=== PATIENT | female | born 1945 | race Caucasian/White ===

== ENCOUNTER 2017-11-12 09:04 | Outpatient (CLI) | payer MEDICARE, BC ==
[2017-11-12 08:56] VITALS: BP 140/81
== END 2017-11-12 09:50 | disposition home or self-care (01) ==
LOC: ORTHO 09:04
PROVIDERS: ATTEND Nurse Practitioner Family
DX: S52.502G Unspecified fracture of the lower end of left radius, subsequent encounter for closed fracture with delayed healing (principal); S52.615D Nondisplaced fracture of left ulna styloid process, subsequent encounter for closed fracture with routine healing; E78.00 Pure hypercholesterolemia, unspecified; F17.210 Nicotine dependence, cigarettes, uncomplicated; F32.9 Major depressive disorder, single episode, unspecified; F41.9 Anxiety disorder, unspecified; G89.29 Other chronic pain; J44.9 Chronic obstructive pulmonary disease, unspecified; Z85.41 Personal history of malignant neoplasm of cervix uteri; Z88.0 Allergy status to penicillin; Z88.2 Allergy status to sulfonamides; X58.XXXD Exposure to other specified factors, subsequent encounter
CPT/HCPCS: 73110

== ENCOUNTER 2017-12-12 08:50 | Outpatient (CLI) | payer MEDICARE, BC ==
[2017-12-12 08:49] VITALS: BP 141/75
== END 2017-12-12 09:30 | disposition home or self-care (01) ==
LOC: ORTHO 08:50
PROVIDERS: ATTEND Nurse Practitioner Family
DX: S52.502D Unspecified fracture of the lower end of left radius, subsequent encounter for closed fracture with routine healing (principal); S52.615G Nondisplaced fracture of left ulna styloid process, subsequent encounter for closed fracture with delayed healing; M85.88 Other specified disorders of bone density and structure, other site; E78.00 Pure hypercholesterolemia, unspecified; J44.9 Chronic obstructive pulmonary disease, unspecified; G89.29 Other chronic pain; F41.9 Anxiety disorder, unspecified; F32.9 Major depressive disorder, single episode, unspecified; F17.210 Nicotine dependence, cigarettes, uncomplicated; Z85.41 Personal history of malignant neoplasm of cervix uteri; Z88.0 Allergy status to penicillin; Z88.2 Allergy status to sulfonamides; X58.XXXD Exposure to other specified factors, subsequent encounter
CPT/HCPCS: 73110

== ENCOUNTER 2018-04-27 07:20 | Emergency (ER) | payer MEDICARE, BC ==
[~2018-04-27] VITALS: Ht 591.1 cm; Wt 81.8 kg
[~2018-04-27 07:20] MED LIST: CLON-529 PO; DIPH50CA3 PO; IBUP-1984 PO
[2018-04-27] MEDS ORDERED: diphenhydrAMINE 50 mg/ml inj IV ONE (07:30)
[2018-04-27] MEDS ORDERED: metoclopramide 5 mg/ml inj IV ONE (07:30)
[2018-04-27] MEDS ORDERED: HYDROmorphone inj. 0.5 MG/0.5 ML DISP.SYRIN IV PRN (07:30)
[2018-04-27] MEDS ORDERED: LORazepam 2 mg/ml vial IV ONE (07:30)
[2018-04-27] MEDS ORDERED: normal saline 1000ML IV soln IVB ONE (07:30)
[2018-04-27] MEDS ORDERED: SIMV40TA4 (08:07)
[2018-04-27] MEDS ORDERED: TIOT4MIS2 (08:07)
[2018-04-27] MEDS ORDERED: IBUP-860 (08:07)
[2018-04-27] MEDS ORDERED: ALBU18HF2 (08:07)
[2018-04-27] MEDS ORDERED: CLON0.1T20 (08:07)
[2018-04-27] MEDS ORDERED: DIPH-681 (08:07)
[2018-04-27] MEDS ORDERED: HYDR-3972 (08:07)
[2018-04-27] MEDS ORDERED: BUSP10TA3 (08:07)
[2018-04-27 08:24] LABS: BASOPHILS % (AUTO) 0.2 % (0-1); EOSINOPHILS % (AUTO) 0.3 % (0-6); HEMATOCRIT 41.7 % (35.0-45.0); HEMOGLOBIN 14.5 g/dl (12.0-16.0); LYMPHOCYTES # (AUTO) 1.3 X10'3 (1.1-4.8); LYMPHOCYTES % (AUTO) 15.8 % (21-51); MEAN CORPUSCULAR HEMOGLOBIN 32.8 PG (27.0-31.0); MEAN CORPUSCULAR HGB CONC 34.8 % (33.0-36.5); MEAN CORPUSCULAR VOLUME 94.2 FL (78-98); MEAN PLATELET VOLUME 9.7 FL (7.4-10.4); MONOCYTES # (AUTO) 0.6 X10'3 (0-0.9); MONOCYTES % (AUTO) 7.4 % (2-12); NEUTROPHILS # (AUTO) 6.1 X10'3 (1.8-7.7); NEUTROPHILS % (AUTO) 76.3 % (42-75); PLATELET COUNT 195 X10'3 (140-440); RED BLOOD COUNT 4.42 X10'6 (4.20-5.60)
[2018-04-27] MEDS ORDERED: HYDROcodone/acetaminophen 5mg/325mg tablet PO ONE (08:30)
[2018-04-27 08:41] LABS: ALANINE AMINOTRANSFERASE 28 U/L (12-78); ALBUMIN 3.9 G/DL (3.4-5.0); ALBUMIN/GLOBULIN RATIO 1.3 (1.1-1.5); ALKALINE PHOSPHATASE 68 IU/L (46-116); ANION GAP 11 (8-16); ASPARTATE AMINO TRANSFERASE 25 U/L (10-37); BILIRUBIN,TOTAL 0.5 MG/DL (0.1-1.0); BLOOD UREA NITROGEN 9 MG/DL (7-18); BUN/CREATININE RATIO 15.8 (6.6-38.0); CALCIUM 8.6 MG/DL (8.5-10.1); CHLORIDE 103 MMOL/L (99-107); CREATININE 0.57 MG/DL (0.40-0.90); GLUCOSE 110 MG/DL (70-104); LIPASE 73 U/L (73-393); POTASSIUM 3.4 MMOL/L (3.5-5.1); SODIUM 139 MMOL/L (135-145); TOTAL CARBON DIOXIDE 24.8 MMOL/L (24-32); TOTAL PROTEIN 6.9 G/DL (6.4-8.2); eGFR > 90 ML/MIN
[2018-04-27] MEDS ORDERED: LORA1TAB PO (09:00)
[2018-04-27 10:33] VITALS: BP 151/80
== END 2018-04-27 10:35 | disposition home or self-care (01) ==
LOC: ER 07:20
DX: R11.2 Nausea with vomiting, unspecified (principal); G89.29 Other chronic pain; F17.210 Nicotine dependence, cigarettes, uncomplicated; Z88.0 Allergy status to penicillin; Z88.2 Allergy status to sulfonamides; Z79.899 Other long term (current) drug therapy
CPT/HCPCS: 36415; 80053; 83690; 85025; 96361; 96374; 96375; 99284; J1200; J2060; J2765; J7030

== ENCOUNTER 2019-04-04 11:19 | Emergency (ER) | payer MEDICARE, BC ==
[~2019-04-04] VITALS: Ht 177.8 cm; Wt 90.0 kg
[~2019-04-04 11:19] MED LIST changes: +ALBU18HF2; +BUSP10TA3; +CLON0.1T20; +DIPH-681; +HYDR-3972; -IBUP-1984 PO; +IBUP-860; +SIMV40TA4; +TIOT4MIS2
[2019-04-04] MEDS ORDERED: HYDROcodone/acetaminophen 10/325mg tab PO ONE (12:00)
[2019-04-04 13:13] VITALS: BP 152/72
== END 2019-04-04 13:37 | disposition home or self-care (01) ==
LOC: ER 11:19
DX: M47.9 Spondylosis, unspecified (principal); I71.4 Abdominal aortic aneurysm, without rupture; Z88.0 Allergy status to penicillin; Z88.2 Allergy status to sulfonamides
CPT/HCPCS: 72131; 99284

== ENCOUNTER 2019-04-05 09:30 | Emergency (ER) | payer MEDICARE, BC ==
[~2019-04-05] VITALS: Ht 172.7 cm; Wt 86.4 kg
[2019-04-05] MEDS ORDERED: LORazepam 1 MG tablet PO ONE (09:55)
[2019-04-05 10:11] LABS: CLARITY,URINE CLEAR (Clear); COLOR,URINE STRAW (Yellow); GLUCOSE, URINE NEGATIVE (Neg); KETONES,URINE 15 mg/dl (Neg); LEUKOCYTE ESTERASE ,URINE NEGATIVE (Neg); NITRITES, URINE NEGATIVE (Neg); OCCULT BLOOD,URINE NEGATIVE (Neg); PH,URINE 6.5 (4.8-8.0); PROTEIN,URINE NEGATIVE (Neg); UROBILINOGEN,URINE 0.2 E.U/dL (0.2-1.0)
[2019-04-05 10:12] LABS: UA COLLECTION TYPE URINAL
[2019-04-05 10:32] LABS: BASOPHILS % (AUTO) 0.4 % (0-1); EOSINOPHILS # (AUTO) 0.1 X10'3 (0-0.9); EOSINOPHILS % (AUTO) 1.5 % (0-6); HEMATOCRIT 41.4 % (35.0-45.0); LYMPHOCYTES # (AUTO) 0.6 X10'3 (1.1-4.8); MEAN CORPUSCULAR HEMOGLOBIN 31.5 PG (27.0-31.0); MEAN CORPUSCULAR HGB CONC 33.9 g/dL (33.0-36.5); MEAN CORPUSCULAR VOLUME 92.8 FL (78-98); MEAN PLATELET VOLUME 9.2 FL (7.4-10.4); MONOCYTES # (AUTO) 0.4 X10'3 (0-0.9); MONOCYTES % (AUTO) 5.8 % (2-12); NEUTROPHILS # (AUTO) 6.5 X10'3 (1.8-7.7); NEUTROPHILS % (AUTO) 84.3 % (42-75); PLATELET COUNT 216 X10'3 (140-440); RED BLOOD COUNT 4.46 X10'6 (4.20-5.60); RED CELL DISTRIBUTION WIDTH 12.3 % (11.5-14.5); WHITE BLOOD COUNT 7.7 X10'3 (4.5-11.0)
[2019-04-05 10:41] LABS: ALANINE AMINOTRANSFERASE 25 U/L (12-78); ALBUMIN 3.8 G/DL (3.4-5.0); ALKALINE PHOSPHATASE 76 IU/L (46-116); ANION GAP 9 (8-16); ASPARTATE AMINO TRANSFERASE 26 U/L (10-37); BILIRUBIN,TOTAL 0.7 MG/DL (0.1-1.0); BLOOD UREA NITROGEN 9 MG/DL (7-18); BUN/CREATININE RATIO 13.6 (6.6-38.0); CALCIUM 8.8 MG/DL (8.5-10.1); CHLORIDE 101 MMOL/L (99-107); CREATININE 0.66 MG/DL (0.40-0.90); GLUCOSE 103 MG/DL (70-104); SODIUM 136 MMOL/L (135-145); TOTAL CARBON DIOXIDE 25.9 MMOL/L (24-32); TOTAL PROTEIN 7.6 G/DL (6.4-8.2); eGFR 87 ML/MIN
[2019-04-05] MEDS ORDERED: morphine 4 MG/ML inj SYRINge IM ONE (10:55)
[2019-04-05 11:32] VITALS: BP 140/87
[2019-04-06] MEDS ORDERED: OXYC-145 PO (15:25)
== END 2019-04-05 11:36 | disposition home or self-care (01) ==
LOC: ER 09:31
DX: M54.5 Low back pain (principal); G89.29 Other chronic pain; Z88.0 Allergy status to penicillin; Z88.2 Allergy status to sulfonamides; Z79.899 Other long term (current) drug therapy; Z98.890 Other specified postprocedural states
CPT/HCPCS: 36415; 80053; 81003; 85025; 96372; 99283; J2270

== ENCOUNTER 2019-04-06 09:54 | Emergency (ER) | payer MEDICARE, BC ==
[~2019-04-06] VITALS: Ht 175.3 cm; Wt 85.0 kg
[2019-04-06] MEDS ORDERED: normal saline 1000ML IV soln IVB ONE (10:35)
[2019-04-06 10:51] LABS: BASOPHILS % (AUTO) 0.3 % (0-1); EOSINOPHILS % (AUTO) 0.2 % (0-6); HEMATOCRIT 40.4 % (35.0-45.0); HEMOGLOBIN 13.7 g/dl (12.0-16.0); LYMPHOCYTES # (AUTO) 0.8 X10'3 (1.1-4.8); LYMPHOCYTES % (AUTO) 10.2 % (21-51); MEAN CORPUSCULAR HEMOGLOBIN 31.1 PG (27.0-31.0); MEAN CORPUSCULAR VOLUME 91.7 FL (78-98); MEAN PLATELET VOLUME 9.2 FL (7.4-10.4); MONOCYTES # (AUTO) 0.6 X10'3 (0-0.9); MONOCYTES % (AUTO) 7.7 % (2-12); NEUTROPHILS # (AUTO) 6.4 X10'3 (1.8-7.7); NEUTROPHILS % (AUTO) 81.6 % (42-75); PLATELET COUNT 239 X10'3 (140-440); RED CELL DISTRIBUTION WIDTH 12.6 % (11.5-14.5); WHITE BLOOD COUNT 7.9 X10'3 (4.5-11.0)
[2019-04-06 11:03] LABS: ALANINE AMINOTRANSFERASE 26 U/L (12-78); ALBUMIN 3.6 G/DL (3.4-5.0); ALBUMIN/GLOBULIN RATIO 0.9 (1.1-1.5); ALKALINE PHOSPHATASE 73 IU/L (46-116); ANION GAP 11 (8-16); ASPARTATE AMINO TRANSFERASE 27 U/L (10-37); BILIRUBIN,TOTAL 0.6 MG/DL (0.1-1.0); BLOOD UREA NITROGEN 12 MG/DL (7-18); BUN/CREATININE RATIO 23.5 (6.6-38.0); CALCIUM 8.8 MG/DL (8.5-10.1); CHLORIDE 102 MMOL/L (99-107); CREATININE 0.51 MG/DL (0.40-0.90); GLUCOSE 103 MG/DL (70-104); LIPASE 195 U/L (73-393); POTASSIUM 3.8 MMOL/L (3.5-5.1); SODIUM 139 MMOL/L (135-145); TOTAL CARBON DIOXIDE 25.7 MMOL/L (24-32); TOTAL PROTEIN 7.5 G/DL (6.4-8.2); eGFR > 90 ML/MIN
[2019-04-06] MEDS ORDERED: HYDROcodone/acetaminophen 10/325mg tab PO ONE (11:10)
--- NOTE | 2019-04-06 12:20 | NUR ---
PT TO MRI
--- NOTE | 2019-04-06 12:55 | NUR ---
Patient returned from mri. sleeping on gurney. appears relieved of pain at this time.
--- NOTE | 2019-04-06 13:05 | NUR ---
PT WANTED TO KNOW IF SHE OULD TAKE HER VENTOLIN, I EXPLAINED THAT WE DONT USUALLY LIKE THE PT TO TAKE THEIR HOME MEDICATIONS. I EXPAINED I WOULD ONTACT THE DR AND HAVE IT ORDERED. PT THEN ASKED HER TO HAND HER HER VENTOLIN FROM HER PURSE AND SHE DID NOT WANT TO WAIT. NAOMY SHAFFER NOTIFIED.
[2019-04-06] MEDS ORDERED: morphine 4 MG/ML inj SYRINge IV PRN (14:30)
--- NOTE | 2019-04-06 14:38 | NUR ---
PT REFUSING TO GET UP AND WALK. EDMUND MORALEZ AND DR SCHNEIDER NOTIFIED.
[2019-04-06] MEDS ORDERED: oxyCODONE/APAP 10/325mg tablet PO ONE (14:50)
[2019-04-06] MEDS ORDERED: OXYC-145 PO (15:25)
--- NOTE | 2019-04-06 15:38 | NUR ---
INSTRUCTED PATIENT AND ABOUT DISCHARGE MEDICATIONS AND TREATMENT SUGGESTIONS. PRESCRIPTION GIVEN FOR NEW PAIN MEDICATION. IS CAREGIVER AND VERBALIZED UNDERSTANDING. DEPARTED PATIENT, WITH AND DAUGHTER, PER WHEELCHAIR, IN STABLE CONDITION.
[2019-04-06 15:40] VITALS: BP 147/64
== END 2019-04-06 15:43 | disposition home or self-care (01) ==
LOC: ER 09:55
DX: G89.29 Other chronic pain (principal); M54.5 Low back pain; Z88.0 Allergy status to penicillin; Z88.2 Allergy status to sulfonamides
CPT/HCPCS: 36415; 72148; 80053; 83690; 85025; 96374; 99284; J2270; J7030; 96361; 99283

== ENCOUNTER 2020-03-10 07:00 | Emergency (ER) | payer MEDICARE, BC ==
[~2020-03-10] VITALS: Ht 172.7 cm; Wt 81.8 kg
[~2020-03-10 07:00] MED LIST changes: +CLON0.1T2; -CLON0.1T20; +OXYC-145 PO; +SIMV-45; -SIMV40TA4
[2020-03-10] MEDS ORDERED: ketorolac trometh inj. 60 MG/2 ML VIAL IM ONE (07:40)
[2020-03-10] MEDS ORDERED: HYDROcodone/acetaminophen 5mg/325mg tablet PO ONE (07:40)
[2020-03-10] MEDS ORDERED: diazepam 5mg tablet PO ONE (07:40)
[2020-03-10] MEDS ORDERED: CYCL-1 PO (09:06)
[2020-03-10 09:22] VITALS: BP 137/84
== END 2020-03-10 10:22 | disposition home or self-care (01) ==
LOC: ER 07:01
DX: S32.492A Other specified fracture of left acetabulum, initial encounter for closed fracture (principal); R10.31 Right lower quadrant pain; G89.29 Other chronic pain; Z88.0 Allergy status to penicillin; Z88.2 Allergy status to sulfonamides; Z88.5 Allergy status to narcotic agent; Z79.899 Other long term (current) drug therapy; X58.XXXA Exposure to other specified factors, initial encounter; Y93.89 Activity, other specified; Y92.89 Other specified places as the place of occurrence of the external cause; Y99.8 Other external cause status
CPT/HCPCS: 73502; 96372; 99283; J1885